=== PATIENT | male | born 1995 | race Caucasian/White ===

== ENCOUNTER 2017-10-18 09:15 | Emergency (ER) | payer SELFPAY ==
[~2017-10-18] VITALS: Ht 177.8 cm; Wt 100.0 kg
[2017-10-18 09:18] VITALS: BP 120/64
== END 2017-10-18 10:27 | disposition left against medical advice (07) ==
LOC: EMS 09:17
DX: Z53.21 Procedure and treatment not carried out due to patient leaving prior to being seen by health care provider (principal)